=== PATIENT | male | born 1985 | race Caucasian/White ===

== ENCOUNTER 2019-01-28 18:48 | Emergency (ER) | payer BC, OTHER ==
[2019-01-28 20:19] LABS: Urine Appearance Clear; Urine Bacteria Absent (Absent); Urine Bilirubin Negative (Negative); Urine Blood 1+ (Negative); Urine Color Yellow; Urine Glucose Negative (Negative); Urine Ketones Trace (Negative); Urine Nitrite Negative (Negative); Urine Protein Negative (Negative); Urine Red Blood Cell Trace(0-2/hpf) (Absent); Urine Specific Gravity 1.011 (1.010-1.030); Urine Squamous Epithelial Cell Present (Absent); Urine Urobilinogen Negative (Negative); Urine White Blood Cell Absent (Absent)
--- NOTE | 2019-01-28 21:53 | ED ---
GI/ HPI - HPI Summary HPI Summary: Patient complains of right testicle pain starting at 4 PM today. States history of same on and off for years. History of vasectomy. Denies trauma, penile discharge, urine symptoms, erection symptoms, abdominal pain, any other pain, injury or symptoms. Denies trauma. - History of Current Complaint Chief Complaint: EDUrogenitalProblems Time Seen by Provider: 01/28/19 21:51 Stated Complaint: PAIN RT TESTICLE AND ABD PER PT Hx Obtained From: Patient Onset/Duration: Started Hours Ago Timing: Constant Severity: Moderate Current Severity: Moderate Pain Intensity: 7 Location of Pain: Groin Additional Locations for Males: Testicles Pain Characteristics: Dull Associated Signs and Symptoms: Positive: Negative Aggravating Factor(s): Palpation Alleviating Factor(s): Nothing - Allergy/Home Medications Allergies/Adverse Reactions: Allergies Allergy/AdvReac Type Severity Reaction Status Date / Time No Known Allergies Allergy Verified 01/28/19 18:57 PMH/Surg Hx/FS Hx/Imm Hx Endocrine/Hematology History: Denies: Hx Anticoagulant Therapy Cardiovascular History: Denies: Hx Pacemaker/ICD History: Denies: Hx Dialysis Sensory History: Denies: Hx Eye Prosthesis Opthamlomology History: Denies: Hx Legally Blind EENT History: Denies: Hx Deafness - review for blood Neurological History: Denies: Hx Dementia Infectious Disease History: No Infectious Disease History: Denies: Traveled Outside the [place] in Last 30 Days - Family History Known Family History: Positive: Non-Contributory - Social History Alcohol Use: Occasionally Substance Use Type: Reports: None Smoking Status (MU): Unknown if Ever Smoked Review of Systems Constitutional: Negative Eyes: Negative ENT: Negative Cardiovascular: Negative - unknown presentation Respiratory: Negative Gastrointestinal: Negative Genitourinary: Negative Musculoskeletal: Negative Skin: Negative Neurological: Negative Psychological: Normal All Other Systems Reviewed And Are Negative: Yes Physical Exam Triage Information Reviewed: Yes Vital Signs On Initial Exam: Initial Vitals Temp Pulse Resp BP Pulse Ox 97.9 F 92 18 160/100 97 01/28/19 18:55 01/28/19 18:55 01/28/19 18:55 01/28/19 18:55 01/28/19 18:55 Vital Signs Reviewed: Yes Appearance: Positive: Well-Appearing Skin: Positive: Warm Head/Face: Positive: Normal Head/Face Inspection Eyes: Positive: Normal Neck: Positive: Supple Respiratory/Lung Sounds: Positive: Clear to Auscultation Cardiovascular: Positive: Normal Abdomen Description: Positive: Nontender Male Genital Exam: Positive: Normal Genitalia, Epididymal Tenderness, Testicular Tenderness (R). Negative: Inguinal Tenderness, Lesions, Scrotum Tenderness (R), Scrotum Tenderness (L), Testicular Tenderness (L), Urethral Discharge Musculoskeletal: Positive: Normal Neurological: Positive: Normal Psychiatric: Positive: Normal AVPU Assessment: Alert - Myranda Coma Scale Best Eye Response: 4 - Spontaneous Best Motor Response: 6 - Obeys Commands Best Verbal Response: 5 - Oriented Coma Scale Total: 15 Diagnostics - Vital Signs Vital Signs Temp Pulse Resp BP Pulse Ox 01/28/19 21:06 98 F 85 16 154/118 97 01/28/19 18:55 97.9 F 92 18 160/100 97 - Laboratory Lab Results: Lab Results 01/28/19 Range/Units 19:45 Urine Color Yellow Urine Appearance Clear Urine pH 6.0 (5-9) Ur Specific [place] 1.011 (1.010-1.030) Urine Protein Negative (Negative) Urine Ketones Trace A (Negative) Urine Blood 1+ A (Negative) Urine Nitrate Negative (Negative) Urine Bilirubin Negative (Negative) Urine Urobilinogen Negative (Negative) Ur Leukocyte Esterase Negative (Negative) Urine WBC (Auto) Absent (Absent) Urine RBC (Auto) Trace(0-2/hpf) (Absent) Ur Squamous Epith Cells Present A (Absent) Urine Bacteria Absent (Absent) Urine Glucose Negative (Negative) Lab Statement: Any lab studies that have been ordered have been reviewed, and results considered in the medical decision making process. GIGU Course/Dx - Course Course Of Treatment: Patient complains of right testicle pain starting at 4 PM today. States history of same on and off for years. History of vasectomy. Denies trauma, penile discharge, urine symptoms, erection symptoms, abdominal pain, any other pain, injury or symptoms. Denies trauma. Vital signs within normal limits. Ultrasound testicles positive for right epididymitis cyst - Diagnoses Provider Diagnoses: Epididymal cyst Discharge ED - Sign-Out/Discharge Documenting (check all that apply): Patient Departure Patient Received Moderate/Deep Sedation with Procedure: No - Discharge Plan Condition: Stable Disposition: HOME Patient Education Materials: Testicle Pain (ED) Referrals: Christina Shelley MD [Primary Care Provider] - Arthur French MD [Medical Doctor] - Additional Instructions: Alternate ibuprofen 600 mg with Tylenol 650 mg for pain. If pain persists more than 1 week follow-up with urology Dr. French for further evaluation. - Billing Disposition and Condition Condition: STABLE Disposition: Home - Attestation Statements Document Initiated by Scribe: Yes Documenting Scribe: jed wyatt Provider For Whom Scribe is Documenting (Include Credential): sebastien Scribblanca Attestation: jed Elkins, scribed for sebastien on 01/31/19 at 1950. Scribe Documentation Reviewed: Yes Provider Attestation: The documentation as recorded by the jed connor accurately reflects the service I personally performed and the decisions made by sebastien anderson Status of Scribe Document: Ready
[2019-01-28 22:16] VITALS: BP 149/98
== END 2019-01-28 22:15 | disposition home or self-care (01) ==
LOC: ED 18:48
DX: N50.3 Cyst of epididymis (principal)
CPT/HCPCS: 76870; 81003; 81015; 99281